=== PATIENT | female | born 1975 ===

== ENCOUNTER 2016-11-15 08:37 | Outpatient (RCR) | payer BC ==
[~2016-11-15] VITALS: Ht 167.6 cm; Wt 70.3 kg
[2016-11-18] MEDS ORDERED: Lidocaine HCl 2% Jelly 5ml Tube TOPIC ONE (16:45)
== END 2016-12-07 | disposition home or self-care (01) ==
LOC: WCC 08:37
DX: T81.31XS Disruption of external operation (surgical) wound, not elsewhere classified, sequela (principal)